=== PATIENT | female | born 1990 | race Caucasian/White ===

== ENCOUNTER → 2017-05-25 | Outpatient (CLI) | payer OTHER ==
[~2017-05-25] MED LIST: DAYPRO600 M1 PO
== END | disposition home or self-care (01) ==
LOC: US 07:30
DX: K76.0 Fatty (change of) liver, not elsewhere classified (principal); K76.9 Liver disease, unspecified

== ENCOUNTER → 2017-06-02 | Day surgery (SDC) | payer OTHER ==
[~2017-06-02] VITALS: Ht 157.4 cm; Wt 104.3 kg
[~2017-06-02] MED LIST changes: +OMEPRAZOLE40 MG PO; +Ventolin 02.5 MG/3 M INH
[2017-06-02 08:04] VITALS: BP 117/63
[2017-06-02 08:56] VITALS: BP 108/57
[2017-06-02 09:11] VITALS: BP 109/76
[2017-06-02 09:26] VITALS: BP 117/72
== END | disposition home or self-care (01) ==
LOC: SDC 06-01 15:30
DX: K29.50 Unspecified chronic gastritis without bleeding (principal); J45.909 Unspecified asthma, uncomplicated; K21.9 Gastro-esophageal reflux disease without esophagitis; Z87.891 Personal history of nicotine dependence; Z79.899 Other long term (current) drug therapy; E66.01 Morbid (severe) obesity due to excess calories; Z68.41 Body mass index [BMI] 40.0-44.9, adult

== ENCOUNTER → 2018-12-28 | Outpatient (CLI) | payer OTHER | END | disposition home or self-care (01) | LOC: US 11:00 | DX: Z30.430 Encounter for insertion of intrauterine contraceptive device (principal); N93.0 Postcoital and contact bleeding ==

== ENCOUNTER → 2020-09-13 | Outpatient (CLI) | payer OTHER ==
[~2020-09-13] MED LIST changes: +AUGMENTIN 875-875 MG PO
== END | disposition home or self-care (01) ==
LOC: RAD 12:17
PROVIDERS: ATTEND Nurse Practitioner Family
DX: M54.5 Low back pain (principal); N93.9 Abnormal uterine and vaginal bleeding, unspecified; J30.2 Other seasonal allergic rhinitis; R42 Dizziness and giddiness; Z11.3 Encounter for screening for infections with a predominantly sexual mode of transmission; Z87.42 Personal history of other diseases of the female genital tract; Z97.5 Presence of (intrauterine) contraceptive device

== ENCOUNTER 2020-09-14 10:22 | Emergency (ER) | payer OTHER ==
[~2020-09-14] VITALS: Ht 157.4 cm; Wt 72.6 kg
[~2020-09-14 10:22] MED LIST changes: -AUGMENTIN 875-875 MG PO
[2020-09-14] MEDS ORDERED: AUGMENTIN 875-875 MG PO (12:44)
== END 2020-09-14 13:08 | disposition home or self-care (01) ==
LOC: ED 10:22
DX: J45.909 Unspecified asthma, uncomplicated (principal); S91.332A Puncture wound without foreign body, left foot, initial encounter; Z88.8 Allergy status to other drugs, medicaments and biological substances; Z79.899 Other long term (current) drug therapy; L03.116 Cellulitis of left lower limb; W22.8XXA Striking against or struck by other objects, initial encounter; Y93.89 Activity, other specified; Y92.89 Other specified places as the place of occurrence of the external cause; Y99.8 Other external cause status

== ENCOUNTER → 2020-09-14 | Outpatient (CLI) | payer OTHER | END | disposition home or self-care (01) | LOC: US 09:30 | PROVIDERS: ATTEND Nurse Practitioner Family | DX: M54.5 Low back pain (principal); N93.9 Abnormal uterine and vaginal bleeding, unspecified; Z97.5 Presence of (intrauterine) contraceptive device ==

== ENCOUNTER → 2020-09-20 | Outpatient (CLI) | payer OTHER ==
[~2020-09-20] MED LIST changes: +AUGMENTIN 875-875 MG PO
== END | disposition home or self-care (01) ==
LOC: RAD 12:36
PROVIDERS: ATTEND Nurse Practitioner Family
DX: M77.32 Calcaneal spur, left foot (principal); S90.852D Superficial foreign body, left foot, subsequent encounter; X58.XXXD Exposure to other specified factors, subsequent encounter

== ENCOUNTER → 2022-01-14 | Outpatient (CLI) | payer OTHER | END | disposition home or self-care (01) | LOC: RAD 11:03 | PROVIDERS: ATTEND Chiropractor Orthopedic | DX: M75.42 Impingement syndrome of left shoulder (principal); M99.01 Segmental and somatic dysfunction of cervical region ==

== ENCOUNTER → 2022-01-20 | Outpatient (CLI) | payer OTHER | END | disposition home or self-care (01) | LOC: RAD 10:08 | PROVIDERS: ATTEND Nurse Practitioner Family | DX: M79.672 Pain in left foot (principal) ==

== ENCOUNTER → 2022-03-13 | Outpatient (CLI) | payer OTHER | END | disposition home or self-care (01) | LOC: RAD 09:54 | PROVIDERS: ATTEND Chiropractor Orthopedic | DX: M75.42 Impingement syndrome of left shoulder (principal); R07.9 Chest pain, unspecified ==

== ENCOUNTER → 2022-04-02 | Day surgery (SDC) | payer OTHER ==
[~2022-04-02] VITALS: Ht 160 cm; Wt 72.6 kg
[~2022-04-02] MED LIST changes: +CEPHALEXIN500 M1 PO; +TRAMADOL HCL50 MG PO
[2022-04-02 07:02] VITALS: BP 116/45
[2022-04-02 08:28] VITALS: BP 95/49
[2022-04-02 08:43] VITALS: BP 90/44
[2022-04-02 08:58] VITALS: BP 89/43
== END | disposition home or self-care (01) ==
LOC: SDC 03-28 14:00
PROVIDERS: ATTEND Podiatrist Foot & Ankle Surgery
DX: S90.852A Superficial foreign body, left foot, initial encounter (principal); J45.909 Unspecified asthma, uncomplicated; K21.9 Gastro-esophageal reflux disease without esophagitis; Z79.899 Other long term (current) drug therapy; Z87.891 Personal history of nicotine dependence; W45.8XXA Other foreign body or object entering through skin, initial encounter; W25.XXXA Contact with sharp glass, initial encounter; Y93.89 Activity, other specified; Y92.89 Other specified places as the place of occurrence of the external cause; Y99.8 Other external cause status

== ENCOUNTER 2022-08-21 16:19 | Emergency (ER) | payer OTHER ==
[~2022-08-21] VITALS: Ht 160 cm; Wt 74.8 kg
[2022-08-21] MEDS ORDERED: ZANAFLEX4 MG PO (18:34)
[2022-08-21] MEDS ORDERED: MEDROL DOSEPAK4 MG PO (18:34)
[2022-08-21] MEDS ORDERED: NAPROSYN500 MG PO (18:34)
== END 2022-08-21 18:52 | disposition home or self-care (01) ==
LOC: ED 16:19
DX: S39.012A Strain of muscle, fascia and tendon of lower back, initial encounter (principal); J45.909 Unspecified asthma, uncomplicated; Z88.8 Allergy status to other drugs, medicaments and biological substances; X50.0XXA Overexertion from strenuous movement or load, initial encounter; Y93.43 Activity, gymnastics; Y92.39 Other specified sports and athletic area as the place of occurrence of the external cause; Y99.8 Other external cause status

== ENCOUNTER → 2023-03-18 | Outpatient (CLI) | payer OTHER ==
[~2023-03-18] MED LIST changes: +MEDROL DOSEPAK4 MG PO; +NAPROSYN500 MG PO; +ZANAFLEX4 MG PO
== END | disposition home or self-care (01) ==
LOC: RAD 11:17
PROVIDERS: ATTEND Chiropractor Orthopedic
DX: M99.03 Segmental and somatic dysfunction of lumbar region (principal)

== ENCOUNTER → 2023-06-11 | Outpatient (CLI) | payer OTHER | END | disposition home or self-care (01) | LOC: RAD 12:58 | PROVIDERS: ATTEND Chiropractor Orthopedic | DX: M99.01 Segmental and somatic dysfunction of cervical region (principal) ==